=== PATIENT | male | born 1980 | race Caucasian/White ===

== ENCOUNTER 2025-07-06 06:15 | Day surgery (SDC) | payer OTHER, SELFPAY | END 2025-07-06 08:46 | disposition home or self-care (01) | LOC: GI 06:15 | PROVIDERS: ATTENDING PHYSICIAN Internal Medicine; FAMILY PHYSICIAN Family Medicine | DX: Z12.11 Encounter for screening for malignant neoplasm of colon (principal); D12.3 Benign neoplasm of transverse colon; D12.8 Benign neoplasm of rectum; K57.30 Diverticulosis of large intestine without perforation or abscess without bleeding | CPT/HCPCS: 45385; 45380; 88305 ==